=== PATIENT | female | born 1960 | race Caucasian/White ===

== ENCOUNTER → 2017-06-07 | Outpatient (CLI) | payer OTHER | END | disposition home or self-care (01) | LOC: SURG 14:48 | PROVIDERS: ATTEND Anesthesiology Pain Medicine | DX: M43.06 Spondylolysis, lumbar region (principal); M54.16 Radiculopathy, lumbar region; Z96.643 Presence of artificial hip joint, bilateral | CPT/HCPCS: 99204 ==

== ENCOUNTER → 2017-12-06 | Outpatient (CLI) | payer OTHER ==
[~2017-12-06] MED LIST: BUPIVACAINE MPF 0.25% 10 ML VIAL. ONE; LIDOCAINE 1% PF 30 ML VIAL. ONE
== END | disposition home or self-care (01) ==
LOC: SURG 10:00
PROVIDERS: ATTEND Anesthesiology Pain Medicine
DX: M47.816 Spondylosis without myelopathy or radiculopathy, lumbar region (principal); M51.16 Intervertebral disc disorders with radiculopathy, lumbar region; G89.29 Other chronic pain; M25.552 Pain in left hip; M25.551 Pain in right hip; Z72.0 Tobacco use; Z79.899 Other long term (current) drug therapy; Z72.89 Other problems related to lifestyle; Z96.643 Presence of artificial hip joint, bilateral; G47.30 Sleep apnea, unspecified; Z88.6 Allergy status to analgesic agent
CPT/HCPCS: 64493; 64494; J2001; J3490; 64495